=== PATIENT | female | born 1960 | race Hispanic/Latino ===

== ENCOUNTER 2024-08-14 16:25 | Emergency (ER) | payer OTHER, SELFPAY ==
[2024-08-14 16:32] VITALS: BP 168/90
--- NOTE | 2024-08-14 19:38 | ED.GENMED ---
History of Present Illness
General
Chief Complaint: Eye Problems
Time Seen by Provider: 08/14/24 19:00
History of Present Illness
History of Present Illness:
64-year-old female presents the emergency department for evaluation of left eye blurry vision and severe headache that has been ongoing for the past several days. She also reports left eye burning and itching. She was seen in urgent care earlier
in the week and started on topical antihistamine drops which she feels have not helped. She woke this morning with a conjunctival hemorrhage and is concerned that this is related. She describes a blurred abnormality in the central vision that
moves with eye movement.
Review of Systems
Review of Systems
Allergies reviewed?: Yes
All Other Systems: ROS reviewed and negative except as documented in HPI and ROS
Phy Exam
Physical Exam
Physical Exam:
GEN: Well appearing, NAD, WDWN
HEENT: Oral mucosa moist, no scleral icterus. Mild subconjunctival hemorrhage seen in the lateral conjunctive on the left eye. No hyphema or hypopyon. No obvious abnormalities in the anterior chamber
Cardiac: Regular rate
Lung: No respiratory distress, no tachypnea
MSK: No gross deformity or injuries
Skin: Good color, no pallor or jaundice, no rashes
Neuro: AO x3, moves all extremities freely
Psych: Calm, cooperative
Course
Orders/Labs/Results
Orders:
Orders
08/14/24 16:41
CT Head W/o Iv Contrast Urgent
Comment:
Reason For Exam: headache with blurry vision
08/14/24 19:46
CRP [C-Reactive Protein] Urgent
Complete Blood Count/With Diff Urgent
Comprehensive Metabolic Panel Urgent
08/14/24 20:33
Fluorescein Sodium [Ful-Kristine] 1 mg .ROUTE .STK-MED ONE
Tetracaine HCl [Tetracaine 0.5% Ophthalmic Solution] 1 drop .ROUTE .STK-MED ONE
Abnormal Lab Results
08/14/24
19:46
Absolute Monos (auto) 0.7 H 10^3/uL
(0.1-0.6)
BUN 21 H mg/dl
(7-17)
Glucose 108 H mg/dl
(70-99)
Total Protein 8.5 H g/dl
(6.3-8.2)
Albumin 5.1 H g/dl
(3.5-5.0)
08/14/24 19:46
08/14/24 19:46
Vital Signs
Initial and Last Documented VS:
Initial Vital Signs
Temp Pulse Resp BP Pulse Ox
97.9 F 91 17 168/90 99
08/14/24 16:32 08/14/24 16:32 08/14/24 16:32 08/14/24 16:32 08/14/24 16:32
Last Documented Vital Signs
Temp Pulse Resp BP Pulse Ox
97.9 F 74 18 158/93 99
08/14/24 16:32 08/14/24 19:48 08/14/24 19:48 08/14/24 19:48 08/14/24 19:48
MDM/Problems Addressed
MDM/Problems Addressed:
No concerning findings on exam, negative CRP rules out temporal arteritis, CT of the head shows no intracranial mass lesion. Recommend outpatient eye doctor follow-up
*Critical Care Note
Total Time (30-74mins, 75-104mins- exclusive of procedures): Not Applicable
ED Attending Note
-
Portions of this chart may have been created with voice recognition software.� Occasional wrong word or��sound alike� substitutions may have occurred due to the inherent limitations of voice recognition software.
Discharge Plan
Departure
Patient Disposition: Home (Routine Discharge)
Date of Disposition: 08/14/24
Time of Disposition: 20:41
Patient with high blood pressure during this ER visit?: No
Discharge Problem:
Blurred vision, left eye
Instructions: Subconjunctival Hemorrhage
Referrals:
Sissy Mason MD [Active, Ophthalmology]
UNKNOWN - PT DOES,NOT KNOW [Family Provider]
Interventions
Interventions:
*Risk Screen - Suicide Last Done: 08/14/24 16:40
*General Assessment Last Done: 08/14/24 16:40
*Neglect/Abuse Screening Last Done: 08/14/24 16:40
*ED COVID-19 Vaccine History Last Done: 08/14/24 16:40
*Nursing Disposition Last Done: 08/14/24 20:51
Discharge Date and Time
Discharge Date/Time: 08/14/24 20:54
Print Language: E[employer]ATOR[employer] [place]INE[place]
[2024-08-14 19:48] VITALS: BP 158/93
[2024-08-14 19:58] LABS: % Eosinophils 3.9 % (0-6); % Immature Granulocytes 0.2 % (0-0.5); % Lymphocytes 36.2 % (20.5-51.1); % Monocytes 7.7 % (1.7-9.3); Absolute Basophils 0.1 10^3/uL (0-0.2); Absolute Eosinophils 0.4 10^3/uL (0-0.7); Absolute Lymphocytes 3.4 10^3/uL (1.2-3.4); Absolute Monocytes 0.7 10^3/uL (0.1-0.6); Absolute Neutrophils 4.8 10^3/uL (1.4-6.5); Hematocrit 38.5 % (37.0-47.0); Hemoglobin 12.8 g/dL (12.0-16.0); Mean Corp Hgb Conc. 33.2 g/dL (33.0-37.0); Mean Corpuscular Hgb 28.8 pg (27.0-31.0); Mean Corpuscular Volume 86.5 fL (81.0-99.0); Mean Platelet Volume 9.4 fL (7.4-10.4); Nucleated Red Blood Cells % 0 %; Platelet Count 309 10^3/uL (130-400); Red Blood Cell Count 4.45 10^6/uL (4.20-5.40); Red Cell Dist. Width 13.6 % (11.5-14.5); White Blood Cell Count 9.4 10^3/uL (4.8-10.8)
[2024-08-14 20:14] LABS: ALT (SGPT) 30 U/L (0-35); AST (SGOT) 32 U/L (14-36); Albumin 5.1 g/dl (3.5-5.0); Alkaline Phosphatase 118 U/L (38-126); Blood Urea Nitrogen 21 mg/dl (7-17); Calcium 9.8 mg/dl (8.4-10.2); Carbon Dioxide 29 mmol/L (22-30); Chloride 105 mmol/L (98-107); Glucose 108 mg/dl (70-99); Potassium 4.5 mmol/L (3.5-5.1); Sodium 140 mmol/L (135-145); Total Bilirubin 0.4 mg/dl (0.2-1.3); Total Protein 8.5 g/dl (6.3-8.2); eGFR > 60.00
[2024-08-14 20:17] LABS: C-Reactive Protein < 5.00 mg/L (0.0-10.00)
== END 2024-08-14 20:54 | disposition home or self-care (01) ==
LOC: EMR 16:25
PROVIDERS: Physician Assistant; EMERGENCY PHYSICIAN Student in an Organized Health Care Education/Training Program
DX: H53.8 Other visual disturbances (principal); H11.32 Conjunctival hemorrhage, left eye; R51.9 Headache, unspecified
CPT/HCPCS: 99284; 70450; 80053; 85025; 86140